=== PATIENT | female | born 1990 | race African-American/Black ===

== ENCOUNTER 2017-02-18 22:00 | Observation (INO) | payer OTHER ==
[~2017-02-18] VITALS: Ht 160 cm; Wt 89.1 kg
[2017-02-19] MEDS ORDERED: IBUPROFEN 600 MG TABLET PO ONE (01:45)
[2017-02-19] MEDS ORDERED: ACETAMINOPHEN 500 MG TABLET PO ONE (01:45)
[2017-02-19] MEDS ORDERED: DiphenhydrAMINE HCL 25 MG CAPSULE PO ONE (01:45)
[2017-02-19 02:30] VITALS: BP 111/70
== END 2017-02-19 03:10 | disposition home or self-care (01) ==
LOC: EMS 22:02 → INTOOBSV 02-19 02:13 → 4S 02-19 02:13
PROVIDERS: ADMIT Obstetrics & Gynecology; ATTEND Obstetrics & Gynecology
DX: O26.892 Other specified pregnancy related conditions, second trimester (principal); M54.5 Low back pain; R05 Cough; Z3A.25 25 weeks gestation of pregnancy
CPT/HCPCS: 59025; 99285; G0378

== ENCOUNTER 2017-04-09 11:01 | Emergency (ER) | payer MEDICAID, OTHER ==
[~2017-04-09] VITALS: Ht 157.5 cm; Wt 94.5 kg
[2017-04-09] MEDS ORDERED: ACETAMINOPHEN 325 MG TABLET PO ONE (11:45)
[2017-04-09 12:09] VITALS: BP 127/81
== END 2017-04-09 12:17 | disposition home or self-care (01) ==
LOC: EMS 11:04
DX: O26.893 Other specified pregnancy related conditions, third trimester (principal); M25.531 Pain in right wrist; Z3A.30 30 weeks gestation of pregnancy
CPT/HCPCS: 99283

== ENCOUNTER 2017-10-18 20:55 | Emergency (ER) | payer MEDICAID ==
[~2017-10-18] VITALS: Ht 157.5 cm; Wt 72.7 kg
[2017-10-18 22:05] VITALS: BP 135/78
[2017-10-18] MEDS ORDERED: HYDROCODONE/ACETAMINOPHEN 5-325 MG TABLET PO ONE (22:30)
[2017-10-18] MEDS ORDERED: AMOX TR/POT CLAV 875 MG/125 MG TABLET PO ONE (22:30)
== END 2017-10-18 22:40 | disposition home or self-care (01) ==
LOC: EMS 21:04
DX: L03.311 Cellulitis of abdominal wall (principal)
CPT/HCPCS: 99283

== ENCOUNTER 2017-12-20 08:20 | Emergency (ER) | payer MEDICAID, OTHER ==
[~2017-12-20] VITALS: Ht 160 cm; Wt 79.5 kg
[2017-12-20] MEDS ORDERED: ONDANSETRON HCL 4 MG/2 ML VIAL IVP ONE (09:15)
[2017-12-20] MEDS ORDERED: SODIUM CHLORIDE 0.9% 1,000 ML IV ONE (09:15)
[2017-12-20 09:33] LABS: ANION GAP 10 mmol/L (8-16); CALCIUM, TOTAL 8.3 mg/dL (8.8-10.5); CARBON DIOXIDE 27 mmol/L (22-29); CHLORIDE 105 mmol/L (98-107); CREATININE 0.65 mg/dL (0.60-1.30); GLOMERULAR FILTR. RATE CALC > 60 mL/min (>60); GLUCOSE,RANDOM 98 mg/dL (70-110); POTASSIUM 3.4 mmol/L (3.5-5.1); SODIUM SERUM 142 mmol/L (136-145); UREA NITROGEN, BLOOD 10 mg/dL (7-18)
[2017-12-20 09:39] LABS: ALANINE AMINOTRANSFERASE 18 U/L (12-78); ALBUMIN 3.4 g/dL (3.4-5.0); ALKALINE PHOSPHATASE 83 U/L (46-116); ASPARTATE AMINOTRANSFERASE 14 U/L (15-37); BILIRUBIN,TOTAL 0.6 mg/dL (0.1-1.0); LIPASE 87 U/L (73-393); TOTAL PROTEIN, SERUM 6.7 g/dL (6.4-8.2)
[2017-12-20 09:56] LABS: EOSINOPHILS % (AUTO) 5.2 % (1.0-6.0); HEMATOCRIT 42.7 % (36-46); HEMOGLOBIN 14.9 g/dL (12.0-16.0); LYMPHOCYTES # (AUTO) 1.6 K/uL (1.0-4.8); LYMPHOCYTES % (AUTO) 34.6 % (22.0-44.0); MEAN CORPUSCULAR HEMOGLOBIN 31.2 pg (26.0-34.0); MEAN CORPUSCULAR HGB CONC 34.8 G/dL (31.0-37.0); MEAN CORPUSCULAR VOLUME 90 fL (80-100); MONOCYTES # (AUTO) 0.4 K/uL (0.1-1.0); MONOCYTES % (AUTO) 8.6 % (2.0-9.0); NEUTROPHILS # (AUTO) 2.3 K/uL (1.8-7.7); NEUTROPHILS % (AUTO) 50.6 % (40.0-70.0); PLATELET COUNT (AUTO) 200 K/uL (150-450); RED BLOOD CELL COUNT(AUTO) 4.76 MIL/uL (4.00-5.20); RED CELL DISTRIBUTION WIDTH 14.9 % (11.5-14.5)
[2017-12-20 10:31] VITALS: BP 105/69
[2017-12-20 10:58] LABS: APPEARANCE,URINE CLEAR (CLEAR); BILIRUBIN,URINE NEGATIVE (NEGATIVE); GLUCOSE, URINE (UA) NEGATIVE (NEGATIVE); KETONES,URINE NEGATIVE (NEGATIVE); LEUKOCYTE ESTERASE ,URINE NEGATIVE (NEGATIVE); NITRATE,URINE NEGATIVE (NEGATIVE); OCCULT BLOOD,URINE NEGATIVE (NEGATIVE); PROTEIN,URINE NEGATIVE (NEGATIVE); UROBILINOGEN,URINE 0.2 mg/dL (<=1.0)
== END 2017-12-20 11:15 | disposition home or self-care (01) ==
LOC: EMS 08:21
DX: R10.30 Lower abdominal pain, unspecified (principal); R19.7 Diarrhea, unspecified; R11.0 Nausea; F12.90 Cannabis use, unspecified, uncomplicated
CPT/HCPCS: 36415; 80053; 81003; 83690; 84703; 85025; 96374; 99284; J2405; J7030

== ENCOUNTER 2019-04-12 06:27 | Emergency (ER) | payer MEDICAID, MEDICARE ==
[~2019-04-12] VITALS: Ht 157.5 cm; Wt 75.0 kg
[2019-04-12] MEDS ORDERED: SODIUM CHLORIDE 0.9% 1,000 ML IV ONE (07:45)
[2019-04-12] MEDS ORDERED: ONDANSETRON HCL 4 MG/2 ML VIAL IVP ONE (07:45)
[2019-04-12 08:05] LABS: EOSINOPHILS % (AUTO) 8.2 % (1.0-6.0); HEMATOCRIT 41.1 % (36-46); HEMOGLOBIN 14.1 g/dL (12.0-16.0); LYMPHOCYTES # (AUTO) 1.7 K/uL (1.0-4.8); LYMPHOCYTES % (AUTO) 32.3 % (22.0-44.0); MEAN CORPUSCULAR HEMOGLOBIN 32.5 pg (26.0-34.0); MEAN CORPUSCULAR HGB CONC 34.3 G/dL (31.0-37.0); MEAN CORPUSCULAR VOLUME 95 fL (80-100); MONOCYTES # (AUTO) 0.7 K/uL (0.1-1.0); MONOCYTES % (AUTO) 12.9 % (2.0-9.0); NEUTROPHILS # (AUTO) 2.4 K/uL (1.8-7.7); NEUTROPHILS % (AUTO) 45.6 % (40.0-70.0); PLATELET COUNT (AUTO) 194 K/uL (150-450); RED BLOOD CELL COUNT(AUTO) 4.34 MIL/uL (4.00-5.20); RED CELL DISTRIBUTION WIDTH 13.3 % (11.5-14.5)
[2019-04-12 08:15] LABS: ANION GAP 5 mmol/L (8-16); CALCIUM, TOTAL 8.1 mg/dL (8.8-10.5); CARBON DIOXIDE 29 mmol/L (22-29); CHLORIDE 102 mmol/L (98-107); CREATININE 0.63 mg/dL (0.60-1.30); GLOMERULAR FILTR. RATE CALC > 60 mL/min (>60); GLUCOSE,RANDOM 88 mg/dL (70-110); POTASSIUM 3.6 mmol/L (3.5-5.1); SODIUM SERUM 136 mmol/L (136-145); UREA NITROGEN, BLOOD 13 mg/dL (7-18)
[2019-04-12 08:29] LABS: HCG,QUANTITATIVE < 1 mIU/mL (0-6)
[2019-04-12 09:45] VITALS: BP 126/83
== END 2019-04-12 09:56 | disposition home or self-care (01) ==
LOC: EMS 06:30
DX: R11.2 Nausea with vomiting, unspecified (principal); R42 Dizziness and giddiness; F12.90 Cannabis use, unspecified, uncomplicated
CPT/HCPCS: 36415; 80048; 84702; 85025; 93005; 96361; 96374; 99285; J2405; J7030